=== PATIENT | male | born 1990 | race Caucasian/White ===

== ENCOUNTER 2018-11-10 22:15 | Emergency (ER) | payer OTHER ==
[2018-11-10] MEDS: ONDANSETRON (ODT) 4 MG TAB ODT (22:54)
[2018-11-10] MEDS: ACETAMINOPHEN 325 MG TAB PO (22:54)
== END 2018-11-11 00:46 | disposition home or self-care (01) ==
LOC: FTE 11-11 00:46
DX: S13.4XXA Sprain of ligaments of cervical spine, initial encounter (principal); R51 Headache; R11.10 Vomiting, unspecified; V49.49XA Driver injured in collision with other motor vehicles in traffic accident, initial encounter
CPT/HCPCS: 70450; 72125; 99284-25